=== PATIENT | female | born 1975 | race African-American/Black ===

== ENCOUNTER 2018-06-30 13:02 | Inpatient (IN) | payer OTHER ==
[2018-06-30 13:35] VITALS: BMI 25.3
--- NOTE | 2018-06-30 17:47 | HP ---
CIWA Score - Admission Criteria [facility] Guidelines: Admission for Medically Managed Detox: Requires at least one of the followin. CIWA greater than 12 2. Seizures within the past 24 hours 3. Delirium tremens within the past 24 hours 4. Hallucinations within the past 24 hours 5. Acute intervention needed for co occurring medical disorder 6. Acute intervention needed for co occurring psychiatric disorder 7. Severe withdrawal that cannot be handled at a lower level of care (continued vomiting, continued diarrhea, abnormal vital signs) requiring intravenous medication and/or fluids 8. Admission ROS [facility] Chief Complaint: Pt states she was referred here by case packer and sealer in the [place] for rehab services. Says she is here for cocaine use- uses $100- smoking. Says she tried to stop on her own but was not successful. Denies using other illicit substances. h/o PTSD, anxiety, borderline personality d/o, arthritis, lower back pain. Says she went to detox in [facility] for 3 days last month for alcohol use- says she has not been using alcohol since then. Pt has h/o headache- uses Topiramate h/o ADHD- uses straterra Allergies/Adverse Reactions: Allergies Allergy/AdvReac Type Severity Reaction Status Date / Time zolpidem [From Ambien] AdvReac Intermediate Verified 06/30/18 15:21 gravy Allergy Mild Rash Uncoded 06/30/18 15:22 seanal allergies Allergy Mild Difficulty Uncoded 06/30/18 15:22 Breathing - Ebola screening Have you traveled outside of the country in the last 21 days: No Have you had contact with anyone from an Ebola affected area: No Have you been sick,other than usual withdrawal symptoms: No Do you have a fever: No Patient History - Patient Medical History Hx Asthma: Yes (uses pump) Hx Chronic Obstructive Pulmonary Disease (COPD): No Hx Cancer: No Hx Cardiac Disorders: No Hx Congestive Heart Failure: No Hx Hypertension: No Hx Hypercholesterolemia: No Hx Pacemaker: No HX Cerebrovascular Accident: No Hx Seizures: No Hx Dementia: No Hx Diabetes: No Hx Gastrointestinal Disorders: No Hx Liver Disease: No Hx Genitourinary Disorders: No Hx Sexually Transmitted Disorders: No Hx Renal Disease (ESRD): No Hx Thyroid Disease: No Hx Human Immunodeficiency Virus (HIV): No Hx Hepatitis C: No Hx Depression: Yes Hx Suicide Attempt: Yes Hx Schizophrenia: No - Patient Surgical History Past Surgical History: No Hx Neurologic Surgery: No Hx Cataract Extraction: No Hx Cardiac Surgery: No Hx Lung Surgery: No Hx Breast Surgery: No Hx Breast Biopsy: No Hx Abdominal Surgery: No Hx Appendectomy: No Hx Cholecystectomy: No Hx Genitourinary Surgery: No Hx Section: No Hx Orthopedic Surgery: No Anesthesia Reaction: No - PPD History Previous Implant?: Yes PPD to be Administered?: Yes - Reproductive History Last Menstrual Period: 06/10/18 Patient : No - Smoking Cessation Smoking history: Current every day smoker Have you smoked in the past 12 months: Yes Aproximately how many cigarettes per day: 40 Cigars Per Day: 0 Hx Chewing Tobacco Use: No Initiated information on smoking cessation: Yes 'Breaking Loose' booklet given: 06/30/18 - Substance & Tx. History Hx Alcohol Use: Yes (in the past) Hx Substance Use: No Substance Use Type: Cocaine Hx Substance Use Treatment: Yes - Substances Abused Crack Route: Smoking Frequency: Daily Amount used: $100 Age of first use: 30 Date of Last Use: 06/30/18 Family Disease History - Family Disease History Family Disease History: CA: Grandparent (breast cancer, DM), Mother (liver) Admission Physical Exam [facility] - Vital Signs Vital Signs: Vital Signs - 24 hr 06/30/18 13:33 Temperature 98.3 F Pulse Rate 90 Respiratory 18 Rate Blood Pressure 112/70 Cleared for Admission [facility] - Detox or Rehab Detox Regimen/Protocol: Not Applicable Claeared for Rehab Admission: Yes S Breath Alcohol Content Breath Alcohol Content: 0 Urine Pregancy Test - Result Urine Test Results: Negative- NO Line Present Urine Drug Screen - Results Drug Screen Negative: No Urine Drug Screen Results: JAMILA-Cocaine Inpatient Rehab Admission - Initial Determination Are CD services needed?: Yes Free of communicable disease: Yes Not in need of hospitalization: Yes - Rehab Admission Criteria Previous failed treatment: Yes Poor recovery environment: Yes Comorbidities: Yes Lacks judgement: No Patient is meeting Inpatient Rehab admission criteria:: Yes (pt with multiple mental health issues )
[2018-06-30] MEDS ORDERED: LOPERAMIDE HCL 2 MG CAPSULE PO PRN (18:02)
[2018-06-30] MEDS ORDERED: P-EPHED 60MG/TRIPROLIDI 2.5MG TABLET PO PRN (18:02)
[2018-06-30] MEDS ORDERED: guaiFENesin/D-METHORPHAN HB 10 ML UNIT-DOSE CUPS PO PRN (18:02)
[2018-06-30] MEDS ORDERED: MAGNESIUM HYDROX 2400MG/30ML ORAL SUSPENSION 30 ML CUP PO PRN (18:02)
[2018-06-30] MEDS ORDERED: MENTHOL/PHENOL 1 EACH UD MM PRN (18:02)
[2018-06-30] MEDS ORDERED: MAGNESIUM CITRATE 300 ML BOTTLE PO PRN (18:02)
[2018-06-30] MEDS ORDERED: NICOTINE POLACRILEX 4 MG GUM BUC PRN (18:09)
[2018-06-30] MEDS ORDERED: TUBERCULIN PPD 5 TU/0.1ML VIAL ID ONE (20:05)
[2018-06-30] MEDS ORDERED: traZODone HCL 50 MG TABLET (FP) PO SCH (22:00)
[2018-06-30] MEDS: THIAMINE HCL 100 MG TABLET (FP) PO SCH (22:25)
[2018-06-30 23:10] LABS: URINE APPEARANCE CLOUDY; URINE BILIRUBIN NEGATIVE (<2.0 mg/dL); URINE COLOR YELLOW; URINE GLUCOSE (UA) NEGATIVE (NEGATIVE); URINE KETONE TRACE (NEGATIVE); URINE LEUK ESTERASE 1+ (NEGATIVE); URINE NITRITE NEGATIVE (NEGATIVE); URINE PROTEIN 1+ (NEGATIVE)
[2018-06-30] MEDS: TOPIRAMATE 25 MG TABLET (FP) PO SCH (23:10)
[2018-06-30 23:16] LABS: EPI CELLS MANY /HPF (FEW); URINE BACTERIA RARE /hpf (NONE SEEN); URINE MUCUS RARE; YEAST MANY
[2018-07-01] MEDS: TOPIRAMATE 25 MG TABLET (FP) PO SCH ×2 (09:58→21:15)
[2018-07-01] MEDS: PRENATAL VITAMINS W/ FOLIC ACID TABLET (FP) PO SCH (09:58)
[2018-07-01] MEDS: LIDOCAINE 5% TOPICAL PATCH TP SCH (09:58)
[2018-07-01] MEDS ORDERED: FLUTICASONE PROP 0.05% 16 GM NASAL SPRAY NS SCH (10:00)
[2018-07-01 16:03] LABS: HEMATOCRIT 38.1 % (32.4-45.2); HEMOGLOBIN 12.1 GM/dL (10.7-15.3); MCH 31.5 pg (25.7-33.7); MCHC 31.7 g/dl (32.0-36.0); MEAN CELL VOLUME 99.2 fl (80-96); PLATELET COUNT 248 K/MM3 (134-434); RBC 3.84 M/mm3 (3.60-5.2); RDW 15.6 % (11.6-15.6); WHITE BLOOD COUNT 6.2 K/mm3 (4.0-10.0)
[2018-07-01 17:09] LABS: ALBUMIN 2.9 g/dl (3.4-5.0); ALK PHOS 59 U/L (45-117); ANION GAP 8 MMOL/L (8-16); BILIRUBIN,TOTAL 0.3 mg/dL (0.2-1); BLOOD UREA NITROGEN 13 mg/dL (7-18); CALCIUM 7.9 mg/dL (8.5-10.1); CHLORIDE 108 mmol/L (98-107); CO2 24 mmol/L (21-32); CREATININE 0.9 mg/dL (0.55-1.3); GLUCOSE,RANDOM 113 mg/dL (74-106); POTASSIUM 3.9 mmol/L (3.5-5.1); SGOT/AST 12 U/L (15-37); SGPT/ALT 15 U/L (13-61); SODIUM 140 mmol/L (136-145); TOT PROT 5.8 g/dl (6.4-8.2)
[2018-07-01] MEDS: LIDOCAINE PATCH REMOVAL MC SCH (21:14)
[2018-07-01] MEDS: THIAMINE HCL 100 MG TABLET (FP) PO SCH (21:15)
[2018-07-01] MEDS ORDERED: PT OWN MED DRAWER 7, Y5N ONE (21:17)
[2018-07-01] MEDS: MAG HYDROX/AL HYDROX/SIMETH 30 ML UNIT-DOSE CUP PO PRN (21:18)
[2018-07-01] MEDS: ALBUTEROL SO4 8 GM HFA INHALER IH PRN (21:18)
[2018-07-02] MEDS: PRENATAL VITAMINS W/ FOLIC ACID TABLET (FP) PO SCH (09:37)
[2018-07-02] MEDS: LIDOCAINE 5% TOPICAL PATCH TP SCH (09:37)
[2018-07-02] MEDS: TOPIRAMATE 25 MG TABLET (FP) PO SCH ×2 (09:37→21:39)
[2018-07-02] MEDS ORDERED: NICOTINE 14 MG/24 HOURS TOPICAL PATCH TD SCH (12:30)
[2018-07-02] MEDS: NICOTINE 21 MG/24 HOURS TOPICAL PATCH TD SCH (13:24)
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
[2018-07-02] MEDS: MAG HYDROX/AL HYDROX/SIMETH 30 ML UNIT-DOSE CUP PO PRN (18:07)
[2018-07-02] MEDS ORDERED: PT OWN MED DRAWER 7, Y5N ONE ×2 (18:08→23:06)
[2018-07-02] MEDS: THIAMINE HCL 100 MG TABLET (FP) PO SCH (21:39)
[2018-07-02] MEDS: LIDOCAINE PATCH REMOVAL MC SCH (21:40)
[2018-07-02] MEDS: FLUTICASONE PROP 0.05% 16 GM NASAL SPRAY NS PRN (21:41)
[2018-07-02] MEDS: IBUPROFEN 400 MG TABLET (FP) PO PRN (21:41)
[2018-07-02] MEDS: MELATONIN 5 MG TABLETS PO PRN (21:42)
[2018-07-03] MEDS: LIDOCAINE 5% TOPICAL PATCH TP SCH (09:57)
[2018-07-03] MEDS: NICOTINE 21 MG/24 HOURS TOPICAL PATCH TD SCH (09:58)
[2018-07-03] MEDS: TOPIRAMATE 25 MG TABLET (FP) PO SCH ×2 (09:58→21:38)
[2018-07-03] MEDS: FLUTICASONE PROP 0.05% 16 GM NASAL SPRAY NS PRN (09:58)
[2018-07-03] MEDS: PRENATAL VITAMINS W/ FOLIC ACID TABLET (FP) PO SCH (09:58)
[2018-07-03] MEDS: ACETAMINOPHEN 325 MG TABLET (FP) PO PRN (10:00)
[2018-07-03] MEDS: MAG HYDROX/AL HYDROX/SIMETH 30 ML UNIT-DOSE CUP PO PRN (13:44)
[2018-07-03] MEDS: ALBUTEROL SO4 8 GM HFA INHALER IH PRN (13:45)
[2018-07-03] MEDS: THIAMINE HCL 100 MG TABLET (FP) PO SCH (21:38)
[2018-07-03] MEDS: traZODone HCL 50 MG TABLET (FP) PO PRN (21:39)
[2018-07-03] MEDS: LIDOCAINE PATCH REMOVAL MC SCH (21:39)
[2018-07-03] MEDS: MELATONIN 5 MG TABLETS PO PRN (21:41)
[2018-07-03] MEDS: RANITIDINE HCL 150 MG TABLET (FP) PO SCH (21:41)
[2018-07-03] MEDS: TOLNAFTATE 1% CREAM 15 GM TUBE TP SCH (21:41)
[2018-07-04] MEDS ORDERED: PT OWN MED DRAWER 7, Y5N ONE ×2 (08:41→21:05)
[2018-07-04] MEDS: IBUPROFEN 400 MG TABLET (FP) PO PRN ×2 (09:05→17:13)
[2018-07-04] MEDS: RANITIDINE HCL 150 MG TABLET (FP) PO SCH ×2 (09:06→21:07)
[2018-07-04] MEDS: TOPIRAMATE 25 MG TABLET (FP) PO SCH ×3 (09:06→21:07)
[2018-07-04] MEDS: NICOTINE 21 MG/24 HOURS TOPICAL PATCH TD SCH (09:06)
[2018-07-04] MEDS: PRENATAL VITAMINS W/ FOLIC ACID TABLET (FP) PO SCH (09:06)
[2018-07-04] MEDS: LIDOCAINE 5% TOPICAL PATCH TP SCH (09:06)
[2018-07-04] MEDS: TOLNAFTATE 1% CREAM 15 GM TUBE TP SCH ×2 (09:07→21:11)
[2018-07-04] MEDS: MAG HYDROX/AL HYDROX/SIMETH 30 ML UNIT-DOSE CUP PO PRN (09:10)
[2018-07-04] MEDS: SULFAMETHOXAZOLE/TRIMETHOPRIM 800MG/160MG D.S. TABLET PO SCH ×2 (13:03→21:07)
[2018-07-04] MEDS: SIMETHICONE 80 MG TAB.CHEW (FP) PO PRN ×2 (13:03→21:07)
--- NOTE | 2018-07-04 14:56 | PN ---
[facility] Progress Note Note: Pt states that she was diagnosed with UTI prior to admission here. But never started on antibiotics (cefpodoxime)-still in pharmacy. Pt still with c/o of lower abd/epigastric pain. Laboratory Tests 06/30/18 07/01/18 07/01/18 23:00 09:15 09:15 WBC 6.2 RBC 3.84 Hgb 12.1 Hct 38.1 MCV 99.2 H MCH 31.5 MCHC 31.7 L RDW 15.6 Plt Count 248 MPV 9.0 Sodium 140 Potassium 3.9 Chloride 108 H Carbon Dioxide 24 Anion Gap 8 BUN 13 Creatinine 0.9 Creat Clearance w eGFR > 60 Random Glucose 113 H Calcium 7.9 L Total Bilirubin 0.3 AST 12 L ALT 15 Alkaline Phosphatase 59 Total Protein 5.8 L Albumin 2.9 L Urine Color Yellow Urine Appearance Cloudy Urine pH 5.0 Ur Specific [place] 1.029 Urine Protein 1+ H Urine Glucose (UA) Negative Urine Ketones Trace H Urine Blood 1+ H Urine Nitrite Negative Urine Bilirubin Negative Urine Urobilinogen 2.0 H Ur Leukocyte Esterase 1+ H Urine WBC (Auto) 11 Urine RBC (Auto) 13 Ur Epithelial Cells Many Urine Bacteria Rare Urine Mucus Rare Urine Yeast Many RPR Titer 07/01/18 09:15 WBC RBC Hgb Hct MCV MCH MCHC RDW Plt Count MPV Sodium Potassium Chloride Carbon Dioxide Anion Gap BUN Creatinine Creat Clearance w eGFR Random Glucose Calcium Total Bilirubin AST ALT Alkaline Phosphatase Total Protein Albumin Urine Color Urine Appearance Urine pH Ur Specific [place] Urine Protein Urine Glucose (UA) Urine Ketones Urine Blood Urine Nitrite Urine Bilirubin Urine Urobilinogen Ur Leukocyte Esterase Urine WBC (Auto) Urine RBC (Auto) Ur Epithelial Cells Urine Bacteria Urine Mucus Urine Yeast RPR Titer Nonreactive urine shows some RBC/WBC and some LE. urine culture pending. Will empirically start antibiotics- bactrim-until culture and senstivity results are back-as pt is symptomatic
[2018-07-04] MEDS: ATOMOXETINE HCL 40 MG CAPSULE PO SCH (17:11)
[2018-07-04] MEDS: THIAMINE HCL 100 MG TABLET (FP) PO SCH (21:06)
[2018-07-04] MEDS: traZODone HCL 50 MG TABLET (FP) PO PRN (21:07)
[2018-07-04] MEDS: hydrOXYzine PAMOATE 50 MG CAPSULE (FP) PO SCH (21:08)
[2018-07-04] MEDS: LIDOCAINE PATCH REMOVAL MC SCH (21:08)
[2018-07-05] MEDS: hydrOXYzine PAMOATE 50 MG CAPSULE (FP) PO SCH ×3 (06:53→21:06)
[2018-07-05] MEDS ORDERED: PT OWN MED DRAWER 7, Y5N ONE ×3 (08:40→21:08)
[2018-07-05] MEDS: NICOTINE 21 MG/24 HOURS TOPICAL PATCH TD SCH (09:43)
[2018-07-05] MEDS: LIDOCAINE 5% TOPICAL PATCH TP SCH (09:43)
[2018-07-05] MEDS: ATOMOXETINE HCL 40 MG CAPSULE PO SCH (09:43)
[2018-07-05] MEDS: RANITIDINE HCL 150 MG TABLET (FP) PO SCH ×2 (09:44→21:06)
[2018-07-05] MEDS: SULFAMETHOXAZOLE/TRIMETHOPRIM 800MG/160MG D.S. TABLET PO SCH ×2 (09:44→21:05)
[2018-07-05] MEDS: PRENATAL VITAMINS W/ FOLIC ACID TABLET (FP) PO SCH (09:44)
[2018-07-05] MEDS: TOLNAFTATE 1% CREAM 15 GM TUBE TP SCH ×2 (09:44→21:08)
[2018-07-05] MEDS: TOPIRAMATE 25 MG TABLET (FP) PO SCH ×2 (09:44→21:06)
[2018-07-05] MEDS: ALBUTEROL SO4 8 GM HFA INHALER IH PRN (09:45)
[2018-07-05] MEDS: FLUTICASONE PROP 0.05% 16 GM NASAL SPRAY NS PRN (09:48)
[2018-07-05] MEDS: SIMETHICONE 80 MG TAB.CHEW (FP) PO PRN (09:48)
[2018-07-05] MEDS: THIAMINE HCL 100 MG TABLET (FP) PO SCH (21:05)
[2018-07-05] MEDS: traZODone HCL 50 MG TABLET (FP) PO PRN (21:06)
[2018-07-05] MEDS: LIDOCAINE PATCH REMOVAL MC SCH (21:08)
[2018-07-06] MEDS: hydrOXYzine PAMOATE 50 MG CAPSULE (FP) PO SCH ×3 (06:33→21:48)
[2018-07-06] MEDS ORDERED: PT OWN MED DRAWER 7, Y5N ONE (08:09)
[2018-07-06] MEDS: NICOTINE 21 MG/24 HOURS TOPICAL PATCH TD SCH (09:15)
[2018-07-06] MEDS: LIDOCAINE 5% TOPICAL PATCH TP SCH (09:15)
[2018-07-06] MEDS: SULFAMETHOXAZOLE/TRIMETHOPRIM 800MG/160MG D.S. TABLET PO SCH ×2 (09:15→21:48)
[2018-07-06] MEDS: PRENATAL VITAMINS W/ FOLIC ACID TABLET (FP) PO SCH (09:16)
[2018-07-06] MEDS: ATOMOXETINE HCL 40 MG CAPSULE PO SCH (09:16)
[2018-07-06] MEDS: TOLNAFTATE 1% CREAM 15 GM TUBE TP SCH ×2 (09:16→21:50)
[2018-07-06] MEDS: RANITIDINE HCL 150 MG TABLET (FP) PO SCH ×2 (09:17→21:48)
[2018-07-06] MEDS: TOPIRAMATE 25 MG TABLET (FP) PO SCH ×2 (09:17→21:51)
[2018-07-06] MEDS: FLUTICASONE PROP 0.05% 16 GM NASAL SPRAY NS PRN (09:18)
[2018-07-06] MEDS: IBUPROFEN 400 MG TABLET (FP) PO PRN (11:38)
[2018-07-06] MEDS: SIMETHICONE 80 MG TAB.CHEW (FP) PO PRN (17:38)
[2018-07-06] MEDS: traZODone HCL 50 MG TABLET (FP) PO PRN (21:48)
[2018-07-06] MEDS: LIDOCAINE PATCH REMOVAL MC SCH (21:48)
[2018-07-06] MEDS: MELATONIN 5 MG TABLETS PO PRN (21:49)
[2018-07-06] MEDS: THIAMINE HCL 100 MG TABLET (FP) PO SCH (21:50)
[2018-07-07] MEDS: hydrOXYzine PAMOATE 50 MG CAPSULE (FP) PO SCH ×3 (06:12→21:28)
[2018-07-07] MEDS: SIMETHICONE 80 MG TAB.CHEW (FP) PO PRN (10:04)
[2018-07-07] MEDS: PRENATAL VITAMINS W/ FOLIC ACID TABLET (FP) PO SCH (10:04)
[2018-07-07] MEDS: LIDOCAINE 5% TOPICAL PATCH TP SCH (10:04)
[2018-07-07] MEDS: SULFAMETHOXAZOLE/TRIMETHOPRIM 800MG/160MG D.S. TABLET PO SCH ×2 (10:04→21:29)
[2018-07-07] MEDS: RANITIDINE HCL 150 MG TABLET (FP) PO SCH ×2 (10:05→21:29)
[2018-07-07] MEDS: TOPIRAMATE 25 MG TABLET (FP) PO SCH ×2 (10:05→22:02)
[2018-07-07] MEDS: ATOMOXETINE HCL 40 MG CAPSULE PO SCH (10:06)
[2018-07-07] MEDS: FLUTICASONE PROP 0.05% 16 GM NASAL SPRAY NS PRN (10:06)
[2018-07-07] MEDS: TOLNAFTATE 1% CREAM 15 GM TUBE TP SCH ×2 (10:06→21:32)
[2018-07-07] MEDS: NICOTINE 21 MG/24 HOURS TOPICAL PATCH TD SCH (10:06)
[2018-07-07] MEDS: IBUPROFEN 400 MG TABLET (FP) PO PRN (11:55)
[2018-07-07] MEDS: METHYL SALICYLATE/MENTHOL OINT 30 GM TUBE TP SCH ×2 (12:45→21:32)
[2018-07-07] MEDS: FLUTICASONE PROP 0.05% 16 GM NASAL SPRAY NS SCH ×2 (12:58→22:06)
[2018-07-07] MEDS: ACETAMINOPHEN 325 MG TABLET (FP) PO PRN (14:02)
[2018-07-07] MEDS: THIAMINE HCL 100 MG TABLET (FP) PO SCH (21:28)
[2018-07-07] MEDS: traZODone HCL 50 MG TABLET (FP) PO PRN (21:30)
[2018-07-07] MEDS: MAG HYDROX/AL HYDROX/SIMETH 30 ML UNIT-DOSE CUP PO PRN (21:31)
[2018-07-07] MEDS: LIDOCAINE PATCH REMOVAL MC SCH (21:33)
[2018-07-08] MEDS: hydrOXYzine PAMOATE 50 MG CAPSULE (FP) PO SCH ×3 (06:12→21:02)
[2018-07-08] MEDS ORDERED: PT OWN MED DRAWER 7, Y5N ONE ×2 (08:35→19:17)
[2018-07-08] MEDS: LIDOCAINE 5% TOPICAL PATCH TP SCH (09:06)
[2018-07-08] MEDS: SULFAMETHOXAZOLE/TRIMETHOPRIM 800MG/160MG D.S. TABLET PO SCH ×2 (09:06→21:02)
[2018-07-08] MEDS: METHYL SALICYLATE/MENTHOL OINT 30 GM TUBE TP SCH ×2 (09:07→21:05)
[2018-07-08] MEDS: NICOTINE 21 MG/24 HOURS TOPICAL PATCH TD SCH (09:07)
[2018-07-08] MEDS: ATOMOXETINE HCL 40 MG CAPSULE PO SCH (09:07)
[2018-07-08] MEDS: PRENATAL VITAMINS W/ FOLIC ACID TABLET (FP) PO SCH (09:07)
[2018-07-08] MEDS: TOLNAFTATE 1% CREAM 15 GM TUBE TP SCH ×2 (09:08→21:04)
[2018-07-08] MEDS: RANITIDINE HCL 150 MG TABLET (FP) PO SCH ×2 (09:08→21:02)
[2018-07-08] MEDS: TOPIRAMATE 25 MG TABLET (FP) PO SCH ×2 (09:08→21:02)
[2018-07-08] MEDS: MAG HYDROX/AL HYDROX/SIMETH 30 ML UNIT-DOSE CUP PO PRN (09:10)
[2018-07-08] MEDS: IBUPROFEN 400 MG TABLET (FP) PO PRN (09:51)
[2018-07-08] MEDS: FLUTICASONE PROP 0.05% 16 GM NASAL SPRAY NS SCH ×2 (10:05→21:34)
--- NOTE | 2018-07-08 14:39 | PN ---
[facility] Progress Note Note: PT C/O PAIN TO BACK OF HER LEFT SHOULDER WHEN SHE TAKES DEEP BREATHE. REPORTS SHE HAS TAKEN A DOSE OF MOTRIN BUT NO EFFECT. ALER O X 3. OOB WITH STEADY GAIT. NO SOB AT REST. Vital Signs 07/08/18 06:56 Temperature 98.7 F Pulse Rate 73 Respiratory 18 Rate Blood Pressure 111/62 O:EXAM:PAIN ON LATERAL HYPEREXTENSION TO THE RIGHT. NON WHEN HYPEREXTENDED TO THE LEFT. A:R/O COSTOCHONDRITIS PLAN:MOTRIN PRN DIRECTED. INCREASE PO FLUIDS
[2018-07-08] MEDS: IBUPROFEN 600 MG TABLET (FP) PO PRN (17:30)
[2018-07-08] MEDS: NICOTINE POLACRILEX 4 MG GUM BUC PRN (18:39)
[2018-07-08] MEDS: MELATONIN 5 MG TABLETS PO PRN (21:01)
[2018-07-08] MEDS: traZODone HCL 50 MG TABLET (FP) PO PRN (21:02)
[2018-07-08] MEDS: THIAMINE HCL 100 MG TABLET (FP) PO SCH (21:02)
[2018-07-08] MEDS: LIDOCAINE PATCH REMOVAL MC SCH (21:04)
[2018-07-09] MEDS: hydrOXYzine PAMOATE 50 MG CAPSULE (FP) PO SCH ×3 (06:29→21:05)
[2018-07-09] MEDS: NICOTINE 21 MG/24 HOURS TOPICAL PATCH TD SCH (09:39)
[2018-07-09] MEDS: ATOMOXETINE HCL 40 MG CAPSULE PO SCH (09:39)
[2018-07-09] MEDS: LIDOCAINE 5% TOPICAL PATCH TP SCH (09:39)
[2018-07-09] MEDS: RANITIDINE HCL 150 MG TABLET (FP) PO SCH ×2 (09:40→21:05)
[2018-07-09] MEDS: SULFAMETHOXAZOLE/TRIMETHOPRIM 800MG/160MG D.S. TABLET PO SCH ×2 (09:40→21:05)
[2018-07-09] MEDS: PRENATAL VITAMINS W/ FOLIC ACID TABLET (FP) PO SCH (09:40)
[2018-07-09] MEDS: TOPIRAMATE 25 MG TABLET (FP) PO SCH ×2 (09:41→21:04)
[2018-07-09] MEDS: IBUPROFEN 600 MG TABLET (FP) PO PRN ×2 (09:41→21:07)
[2018-07-09] MEDS: SIMETHICONE 80 MG TAB.CHEW (FP) PO PRN ×2 (09:41→21:04)
[2018-07-09] MEDS: TOLNAFTATE 1% CREAM 15 GM TUBE TP SCH ×2 (09:42→21:08)
[2018-07-09] MEDS: FLUTICASONE PROP 0.05% 16 GM NASAL SPRAY NS SCH ×2 (09:42→22:01)
[2018-07-09] MEDS: METHYL SALICYLATE/MENTHOL OINT 30 GM TUBE TP SCH ×2 (09:42→21:08)
--- NOTE | 2018-07-09 10:12 | PN ---
[facility] Progress Note Note: patient complains of insomnia , requesting increase of Trazadone to home med dose of 50 mg " and higher " . P : dose increased to 50 mg qhs prn insomnia, followup with psychiatry . pt verbalizes understanding
[2018-07-09] MEDS: MAG HYDROX/AL HYDROX/SIMETH 30 ML UNIT-DOSE CUP PO PRN (14:38)
[2018-07-09] MEDS: traZODone HCL 50 MG TABLET (FP) PO PRN (21:05)
[2018-07-09] MEDS: THIAMINE HCL 100 MG TABLET (FP) PO SCH (21:05)
[2018-07-09] MEDS: MELATONIN 5 MG TABLETS PO PRN (21:05)
[2018-07-09] MEDS: LIDOCAINE PATCH REMOVAL MC SCH (21:08)
[2018-07-10] MEDS: hydrOXYzine PAMOATE 50 MG CAPSULE (FP) PO SCH ×3 (06:27→21:33)
[2018-07-10] MEDS ORDERED: PT OWN MED DRAWER 7, Y5N ONE ×3 (08:14→23:40)
[2018-07-10] MEDS: RANITIDINE HCL 150 MG TABLET (FP) PO SCH ×2 (09:39→21:33)
[2018-07-10] MEDS: ATOMOXETINE HCL 40 MG CAPSULE PO SCH (09:39)
[2018-07-10] MEDS: SULFAMETHOXAZOLE/TRIMETHOPRIM 800MG/160MG D.S. TABLET PO SCH ×2 (09:39→21:33)
[2018-07-10] MEDS: TOPIRAMATE 25 MG TABLET (FP) PO SCH ×2 (09:39→21:33)
[2018-07-10] MEDS: PRENATAL VITAMINS W/ FOLIC ACID TABLET (FP) PO SCH (09:39)
[2018-07-10] MEDS: NICOTINE 21 MG/24 HOURS TOPICAL PATCH TD SCH (09:40)
[2018-07-10] MEDS: TOLNAFTATE 1% CREAM 15 GM TUBE TP SCH ×2 (09:40→21:36)
[2018-07-10] MEDS: LIDOCAINE 5% TOPICAL PATCH TP SCH (09:41)
[2018-07-10] MEDS: FLUTICASONE PROP 0.05% 16 GM NASAL SPRAY NS SCH ×2 (09:41→21:35)
[2018-07-10] MEDS: METHYL SALICYLATE/MENTHOL OINT 30 GM TUBE TP SCH ×2 (09:41→21:35)
[2018-07-10] MEDS: MAG HYDROX/AL HYDROX/SIMETH 30 ML UNIT-DOSE CUP PO PRN (09:44)
[2018-07-10] MEDS: SIMETHICONE 80 MG TAB.CHEW (FP) PO PRN (09:44)
[2018-07-10] MEDS: NICOTINE POLACRILEX 4 MG GUM BUC PRN (13:59)
[2018-07-10] MEDS: THIAMINE HCL 100 MG TABLET (FP) PO SCH (21:33)
[2018-07-10] MEDS: MELATONIN 5 MG TABLETS PO PRN (21:34)
[2018-07-10] MEDS: traZODone HCL 50 MG TABLET (FP) PO PRN (21:35)
[2018-07-10] MEDS: LIDOCAINE PATCH REMOVAL MC SCH (21:35)
[2018-07-11] MEDS: hydrOXYzine PAMOATE 50 MG CAPSULE (FP) PO SCH ×3 (06:28→21:04)
[2018-07-11] MEDS ORDERED: PT OWN MED DRAWER 7, Y5N ONE (09:20)
[2018-07-11] MEDS: NICOTINE 21 MG/24 HOURS TOPICAL PATCH TD SCH (09:53)
[2018-07-11] MEDS: FLUTICASONE PROP 0.05% 16 GM NASAL SPRAY NS SCH ×2 (09:53→21:42)
[2018-07-11] MEDS: TOPIRAMATE 25 MG TABLET (FP) PO SCH ×2 (09:54→21:04)
[2018-07-11] MEDS: LIDOCAINE 5% TOPICAL PATCH TP SCH (09:54)
[2018-07-11] MEDS: TOLNAFTATE 1% CREAM 15 GM TUBE TP SCH ×2 (09:54→21:06)
[2018-07-11] MEDS: METHYL SALICYLATE/MENTHOL OINT 30 GM TUBE TP SCH ×2 (09:54→21:05)
[2018-07-11] MEDS: RANITIDINE HCL 150 MG TABLET (FP) PO SCH ×2 (09:55→21:04)
[2018-07-11] MEDS: SULFAMETHOXAZOLE/TRIMETHOPRIM 800MG/160MG D.S. TABLET PO SCH ×2 (09:55→21:04)
[2018-07-11] MEDS: PRENATAL VITAMINS W/ FOLIC ACID TABLET (FP) PO SCH (09:57)
[2018-07-11] MEDS: ATOMOXETINE HCL 40 MG CAPSULE PO SCH (09:58)
[2018-07-11] MEDS: MAG HYDROX/AL HYDROX/SIMETH 30 ML UNIT-DOSE CUP PO PRN (09:59)
[2018-07-11] MEDS ORDERED: COLLOIDAL OATMEAL 1 BAR EACH TP PRN (10:06)
[2018-07-11] MEDS: ACETAMINOPHEN 325 MG TABLET (FP) PO PRN ×2 (14:20→19:41)
[2018-07-11] MEDS: traZODone HCL 50 MG TABLET (FP) PO PRN (21:04)
[2018-07-11] MEDS: MELATONIN 5 MG TABLETS PO PRN (21:04)
[2018-07-11] MEDS: SIMETHICONE 80 MG TAB.CHEW (FP) PO PRN (21:04)
[2018-07-11] MEDS: THIAMINE HCL 100 MG TABLET (FP) PO SCH (21:04)
[2018-07-11] MEDS: LIDOCAINE PATCH REMOVAL MC SCH (21:06)
[2018-07-12] MEDS: hydrOXYzine PAMOATE 50 MG CAPSULE (FP) PO SCH ×3 (06:18→21:09)
[2018-07-12] MEDS: TOPIRAMATE 25 MG TABLET (FP) PO SCH ×2 (09:49→21:09)
[2018-07-12] MEDS: LIDOCAINE 5% TOPICAL PATCH TP SCH (09:49)
[2018-07-12] MEDS: NICOTINE 21 MG/24 HOURS TOPICAL PATCH TD SCH (09:49)
[2018-07-12] MEDS: SULFAMETHOXAZOLE/TRIMETHOPRIM 800MG/160MG D.S. TABLET PO SCH ×2 (09:49→21:09)
[2018-07-12] MEDS: RANITIDINE HCL 150 MG TABLET (FP) PO SCH ×2 (09:49→21:09)
[2018-07-12] MEDS: PRENATAL VITAMINS W/ FOLIC ACID TABLET (FP) PO SCH (09:49)
[2018-07-12] MEDS: ATOMOXETINE HCL 40 MG CAPSULE PO SCH (09:50)
[2018-07-12] MEDS: SIMETHICONE 80 MG TAB.CHEW (FP) PO PRN ×2 (09:50→21:13)
[2018-07-12] MEDS: FLUTICASONE PROP 0.05% 16 GM NASAL SPRAY NS SCH ×2 (09:51→23:00)
[2018-07-12] MEDS: TOLNAFTATE 1% CREAM 15 GM TUBE TP SCH ×2 (09:51→21:09)
[2018-07-12] MEDS: METHYL SALICYLATE/MENTHOL OINT 30 GM TUBE TP SCH ×2 (09:52→21:10)
[2018-07-12] MEDS: ACETAMINOPHEN 325 MG TABLET (FP) PO PRN ×2 (12:03→21:13)
[2018-07-12] MEDS: NICOTINE POLACRILEX 4 MG GUM BUC PRN (12:03)
[2018-07-12] MEDS: LIDOCAINE PATCH REMOVAL MC SCH (21:09)
[2018-07-12] MEDS: THIAMINE HCL 100 MG TABLET (FP) PO SCH (21:10)
[2018-07-12] MEDS: traZODone HCL 50 MG TABLET (FP) PO PRN (21:12)
[2018-07-12] MEDS: MELATONIN 5 MG TABLETS PO PRN (21:13)
[2018-07-12] MEDS: ALBUTEROL SO4 8 GM HFA INHALER IH PRN (21:14)
[2018-07-13] MEDS: hydrOXYzine PAMOATE 50 MG CAPSULE (FP) PO SCH (06:37)
[2018-07-13 07:07] VITALS: BP 94/58; PULSE 83; TEMP 98.2
[2018-07-13] MEDS ORDERED: PT OWN MED DRAWER 7, Y5N ONE (08:45)
[2018-07-13] MEDS: RANITIDINE HCL 150 MG TABLET (FP) PO SCH (09:23)
[2018-07-13] MEDS: TOPIRAMATE 25 MG TABLET (FP) PO SCH (09:23)
[2018-07-13] MEDS: SULFAMETHOXAZOLE/TRIMETHOPRIM 800MG/160MG D.S. TABLET PO SCH (09:23)
[2018-07-13] MEDS: NICOTINE 21 MG/24 HOURS TOPICAL PATCH TD SCH (09:24)
[2018-07-13] MEDS: PRENATAL VITAMINS W/ FOLIC ACID TABLET (FP) PO SCH (09:24)
[2018-07-13] MEDS: LIDOCAINE 5% TOPICAL PATCH TP SCH (09:25)
[2018-07-13] MEDS: ATOMOXETINE HCL 40 MG CAPSULE PO SCH (09:25)
--- NOTE | 2018-07-13 14:20 | PN ---
[facility] Progress Note Note: Requested by nursing staff to discharge this patient at her own request, however patient was scheduled to be discharged tomorrow Patient left the unit because she could not wait to be seen by scenario writer Refer to staff note for more information about the patient discharge Discharge order written
== END 2018-07-13 09:54 | disposition left against medical advice (07) | DRG 770 ==
LOC: YASAS 13:02 → Y3E 19:20
PROVIDERS: ADMIT Psychiatry & Neurology Psychiatry; ATTEND Psychiatry & Neurology Psychiatry
PROC: HZ42ZZZ Group Counseling for Substance Abuse Treatment, Cognitive-Behavioral (ICD-10-PCS; principal; 2018-06-30)
DX: F14.10 Cocaine abuse, uncomplicated (principal); F17.210 Nicotine dependence, cigarettes, uncomplicated; F60.3 Borderline personality disorder; F43.10 Post-traumatic stress disorder, unspecified; F90.9 Attention-deficit hyperactivity disorder, unspecified type; G47.00 Insomnia, unspecified; G43.909 Migraine, unspecified, not intractable, without status migrainosus; M54.5 Low back pain; G89.29 Other chronic pain; M12.9 Arthropathy, unspecified; J45.909 Unspecified asthma, uncomplicated; M25.512 Pain in left shoulder; Z91.5 Personal history of self-harm
CPT/HCPCS: 36415; 80053; 81003; 81015; 85027; 86593; 87086